=== PATIENT | female | born 1970 | race Caucasian/White ===

== ENCOUNTER 2018-09-09 14:00 | Emergency (ER) | payer OTHER ==
[2018-09-09 14:00] VITALS: BMI 26.4
[2018-09-09 14:04] VITALS: BP 131/86; PULSE 81; RESP 20; TEMP 97.8; O2SAT 96
--- NOTE | 2018-09-09 14:54 | C.PDOC ---
History Of Present Illness 48 year old female presents to the ED complaining of left knee pain for one week. Reports every time she takes a step she feels a pressure on her left knee that radiates up to her left buttock. Denies any recent falls or trauma. Reports she had fractured her left knee when she was 8 years old. Time Seen by Provider: 09/09/18 14:18 Chief Complaint (Nursing): Lower Extremity Problem/Injury History Per: Patient History/Exam Limitations: no limitations Onset/Duration Of Symptoms: Days Current Symptoms Are (Timing): Still Present Past Medical History Reviewed: Historical Data, Nursing Documentation, Vital Signs Vital Signs: Last Vital Signs Temp 97.8 F 09/09/18 14:01 Pulse 81 09/09/18 14:01 Resp 20 09/09/18 14:01 BP 131/86 09/09/18 14:01 Pulse Ox 96 09/09/18 14:01 - Medical History PMH: Asthma, Hypothyroidism Surgical History: Appendectomy (at age 12) Family History: States: No Known Family Hx - Social History Hx Tobacco Use: No Hx Alcohol Use: No Hx Substance Use: No - Immunization History Hx Tetanus Toxoid Vaccination: No Hx Influenza Vaccination: No Hx Pneumococcal Vaccination: No Review Of Systems Except As Marked, All Systems Reviewed And Found Negative. Musculoskeletal: Positive for: Other (left knee pain ) Neurological: Negative for: Weakness, Numbness Physical Exam - Physical Exam Appears: Non-toxic, No Acute Distress Skin: Warm, Dry, No Rash Head: Normacephalic Eye(s): bilateral: Normal Inspection, EOMI Nose: Normal Oral Mucosa: Moist Neck: Normal ROM, Supple Chest: Symmetrical Respiratory: No Accessory Muscle Use Extremity: Normal ROM, Tenderness (left lateral knee ), No Calf Tenderness, Capi llary Refill (less than 2 sec to left knee), No Deformity, No Swelling Extremity: Bilateral: Atraumatic, Normal Color And Temperature, Normal ROM Pulses: Left Dorsalis Pedis: Normal, Right Dorsalis Pedis: Normal Neurological/Psych: Oriented x3, Normal Speech, Normal Motor, Normal Sensation Gait: Steady ED Course And Treatment O2 Sat by Pulse Oximetry: 96 (RA) Pulse Ox Interpretation: Normal - Other Rad Left Knee XR Interpretation: No fx or dislocation Progress Note: Patient given Motrin. On reassessment, patient reports feeling better. Knee brace applied by pump and still operator. Patient given follow up instructions for the Orthopedic. Instructed to return to ER if symptoms worsen or new symptoms arise. Disposition - Disposition Referrals: Danny Hartmann MD [Staff Provider] - Disposition: HOME/ ROUTINE Disposition Time: 15:06 Condition: STABLE Additional Instructions: Rest, ice and elevate the area. Follow up with bone doctor in 1-2 days. Prescriptions: Naproxen [Naprosyn] 1 tab PO BID PRN #20 tab PRN Reason: Pain Instructions: Knee Pain (DC) Forms: [facility] ([place]) - Clinical Impression Clinical Impression: Knee pain, left - PA / ELECTROLOG OPERATOR / Resident Statement MD/DO has reviewed & agrees with the documentation as recorded. - Scribe Statement The provider has reviewed the documentation as recorded by the Scribshayy Wang All medical record entries made by the Katieibshayy were at my direction and personally dictated by me. I have reviewed the chart and agree that the record accurately reflects my personal performance of the history, physical exam, medical decision making, and the department course for this patient. I have also personally directed, reviewed, and agree with the discharge instructions and disposition.
--- NOTE | 2018-09-09 17:30 | RAD ---
Date of service: 09/09/2018 PROCEDURE: Left Knee Radiographs. HISTORY: Pain. COMPARISON: None. FINDINGS: BONES: Normal. No fracture. JOINTS: Mild narrowing of the medial joint compartment consistent with osteoarthritis. Subchondral sclerosis of the medial tibial plateau. No articular erosion. Lateral and patellofemoral compartments are preserved. JOINT EFFUSION: None. OTHER FINDINGS: None. IMPRESSION: Mild medial osteoarthritis.
== END 2018-09-09 15:29 | disposition home or self-care (01) ==
LOC: C.ER 14:00
DX: M25.562 Pain in left knee (principal); E03.9 Hypothyroidism, unspecified